=== PATIENT | female | born 1935 | race Two or more races ===

== ENCOUNTER 2016-09-17 22:23 | Emergency (ER) | payer MEDICARE, OTHER ==
[~2016-09-17] VITALS: Ht 152.4 cm; Wt 59.4 kg
--- NOTE | 2016-09-17 22:37 | NUR ---
81 YO FEMALE BIBRA FR HOME FOR WITNESSED SYNCOPAL EPISODE BY FAMILY, FREQUENT SYNCOPAL EPISODES X FEW DAYS, RT KNEE PAIN, RT FOREHEAD HEMATOMA. PT IS ALERT X 3. PT DS TO ER BED 2 BY EMS. PT GOWNED, PLACED ON PHYSICIAN SUPPORT COORDINATOR. SKIN WARM AND DRY, RR EVEN AND UNLABORED. AWAITING ORDERS FROM PROVIDER
[2016-09-17] MEDS ORDERED: IV SET PRIMARY 1 EA INFUS.SET MC ONE (22:53)
[2016-09-17] MEDS ORDERED: IV NS 0.9% 500 ML IV ONE (22:53)
[2016-09-17] MEDS ORDERED: IV NS 0.9% 500 ML BAG IV ONE (23:00)
--- NOTE | 2016-09-17 23:09 | NUR ---
MEDICATED PT ORDERED
[2016-09-17 23:21] LABS: WHITE BLOOD COUNT (AUTO) 8.6 K/uL (4.3-11.0)
[2016-09-17 23:22] LABS: BASOPHILS % (AUTO) 0.2 % (0.0-2.0); EOSINOPHILS % (AUTO) 0.5 % (0.0-6.0); HEMATOCRIT 35 % (33-45); HEMOGLOBIN 11.7 g/dL (11.5-14.8); LYMPHOCYTES % (AUTO) 13.9 % (20.0-44.0); MEAN CORPUSCULAR HEMOGLOBIN 27 PG (26.0-33.0); MEAN CORPUSCULAR HGB CONC 33 g/dl (31.0-36.0); MEAN CORPUSCULAR VOLUME 81 fL (82-100); NEUTROPHILS % (AUTO) 75.4 % (43.0-81.0); PLATELET COUNT (AUTO) 194 /CMM (150-450); RDW COEFFICIENT OF VARIATION 15.1 (11.5-15.0); RED BLOOD CELL COUNT(AUTO) 4.34 MIL/uL (4.0-5.2)
[2016-09-17 23:33] LABS: INR 0.96 (0.87-1.13); PROTHROMBIN TIME 10.3 SECS (9.5-12.7)
[2016-09-17 23:37] LABS: ALANINE AMINOTRANSFERASE 27 U/L (12-78); ALBUMIN 3.5 g/dL (3.4-5.0); ALKALINE PHOSPHATASE 73 U/L (46-116); ASPARTATE AMINOTRANSFERASE 19 U/L (15-37); BILIRUBIN,DIRECT 0.1 mg/dL (0.0-0.2); BILIRUBIN,TOTAL 0.4 mg/dL (0.2-1.0); CARBON DIOXIDE 24 mmol/L (21-32); CHLORIDE 99 mmol/L (98-107); CREATININE 0.9 mg/dL (0.6-1.3); GLUCOSE 123 mg/dL (74-106); POTASSIUM 3.6 mmol/L (3.5-5.1); SODIUM SERUM 134 mmol/L (136-145); UREA NITROGEN, BLOOD 32 mg/dL (7-18)
[2016-09-17 23:41] LABS: TROPONIN I < 0.017 ng/mL (0.00-0.056)
[2016-09-18 00:59] VITALS: BP 149/79
--- NOTE | 2016-09-18 01:05 | NUR ---
Patient discharged to home in stable condition. Written and verbal after care instructions given. Patient verbalizes understanding of instruction.IV removed. Catheter intact and site benign. Pressure and 4x4 applied to site. No bleeding noted. PT ambulatory with a steady gait VITAL SIGNS WITHIN NORMAL LIMITS.
== END 2016-09-18 01:05 | disposition left against medical advice (07) ==
LOC: ER 22:26
DX: R55 Syncope and collapse (principal); S00.83XA Contusion of other part of head, initial encounter; S83.91XA Sprain of unspecified site of right knee, initial encounter; E11.9 Type 2 diabetes mellitus without complications; I10 Essential (primary) hypertension; K21.9 Gastro-esophageal reflux disease without esophagitis; Z85.3 Personal history of malignant neoplasm of breast; Z90.11 Acquired absence of right breast and nipple; W01.198A Fall on same level from slipping, tripping and stumbling with subsequent striking against other object, initial encounter; Y92.89 Other specified places as the place of occurrence of the external cause; Y93.89 Activity, other specified; Y99.8 Other external cause status
CPT/HCPCS: 36415; 70450-TC; 71010-TC; 72125-TC; 73564-TC; 80048-TC; 80076-TC; 84484-TC; 85025-TC; 85730-TC; A4606; J7040; Z7610